=== PATIENT | male | born 1945 | race Caucasian/White ===

== ENCOUNTER 2018-07-24 07:59 | Emergency (ER) | payer MEDICARE ==
[~2018-07-24] VITALS: Ht 188 cm; Wt 98.9 kg
[2018-07-24] MEDS ORDERED: NAPR-514 PO (08:55)
--- NOTE | 2018-07-24 08:55 | PHYS DOC ---
Past Medical History Past Medical History: GERD, Hypertension Adult General Chief Complaint Chief Complaint: UPPER EXTREMITY PAIN HPI HPI Patient is a 72 year old male who presents to the ER with complaints of pain in his left arm antecubital area. Pt denies any known injury, states that the sx began after he carried his bags in to the hotel last night. Pt states he is on his way to [place] from [place] and reports that he drove 6 hours yesterday. Pt denies any chest pain, shortness of breath, palpitations, headache , weakness, or fever. Pt states he is concerned because 2 days ago he was treated with IV medication for a food bolus and the IV was started in his left hand. He denies any swelling, redness, or tenderness of his left arm. He states that the tourniquet used to start the IV was removed immediately. Pt denies any decrease in ROM, reports that the pain increases when he bends or moves his arm. Currently, at rest he denies any pain. He also reports concern that his blood pressure is higher than normal, it is usually in the 130's over 80's. Review of Systems Review of Systems Constitutional: Denies fever or chills [] Eyes: Denies change in visual acuity, redness, or eye pain [] Respiratory: Denies cough or shortness of breath [] Cardiovascular: Denies chest pain or palpitations GI: Denies abdominal pain, nausea, or vomiting Musculoskeletal: Denies back pain, reports pain in left arm over the antecubital space with movement Integument: Denies rash or skin lesions [] Neurologic: Denies headache, focal weakness or sensory changes [] All other systems were reviewed and found to be within normal limits, except as documented in this note. Allergies Allergies Allergies Coded Allergies Type Severity Reaction Last Updated Verified No Known Drug Allergies 07/24/18 No Physical Exam Physical Exam Constitutional: Well developed, well nourished, no acute distress, non-toxic appearance. [] HENT: Normocephalic, atraumatic, bilateral external ears normal, nose normal. [] Eyes: PERRLA, conjunctiva normal, no discharge. [] Cardiovascular:Heart rate regular rhythm, no murmur [] Lungs & Thorax: Bilateral breath sounds clear to auscultation [] Skin: Warm, dry, no erythema, no rash; small hematoma noted to left posterior hand at previous IV site no erythema, warmth, or swelling noted. [] Extremities: No tenderness, no cyanosis, no clubbing, ROM intact, no edema, RUE pulses 2+ [] Neurologic: Alert and oriented X 3, normal motor function, normal sensory function, no focal deficits noted. [] Psychologic: Affect normal, judgement normal, mood normal. [] Current Patient Data Vital Signs Vital Signs Date Time Temp Pulse Resp B/P (MAP) Pulse Ox O2 Delivery O2 Flow Rate FiO2 07/24/18 09:01 71 16 131/75 (93) 94 Room Air 07/24/18 08:31 97.5 97.5 EKG EKG [] Radiology/Procedures Radiology/Procedures [] Course & Med Decision Making Course & Med Decision Making Pertinent Labs and Imaging studies reviewed. (See chart for details) Dx: left elbow strain Rx for naproxen written . Pt encouraged to rest arm, activity as tolerated. Warm packs or ice to sore area for comfort. Follow up with PCP next week. Return to the ER if symptoms worsen. Patient verbalized an understanding of home care, medications, follow-up, and return to ED instructions and was in agreement with the plan of care. [] Dragon Disclaimer Dragon Disclaimer This electronic medical record was generated, in whole or in part, using a voice recognition dictation system. Departure Departure Impression: Primary Impression: Strain of left elbow Disposition: HOME, SELF-CARE Condition: STABLE Patient Instructions: Elbow Injury-Brief Additional Instructions: Fill prescription and use as directed. Rest your arm, activity as tolerated. Warm packs or ice to sore area for comfort. Follow up with PCP next week. Return to the ER if symptoms worsen. Scripts Naproxen (NAPROXEN) 500 Mg Tablet 500 MG PO BID PRN for PAIN for 10 Days, #20 TAB 0 Refills Prov: GRAHAM ORELLANA APRN 07/24/18 Problem Qualifiers Primary Impression: Strain of left elbow Encounter type: initial encounter Qualified Codes: S56.912A - Strain of unspecified muscles, fascia and tendons at forearm level, left arm, initial encounter GRAHAM ORELLANA APRN Jul 24, 2018 08:55
[2018-07-24 09:01] VITALS: BP 131/75
== END 2018-07-24 08:50 | disposition home or self-care (01) ==
LOC: ER 07:59
DX: S56.912A Strain of unspecified muscles, fascia and tendons at forearm level, left arm, initial encounter (principal); I10 Essential (primary) hypertension; K21.9 Gastro-esophageal reflux disease without esophagitis; X50.9XXA Other and unspecified overexertion or strenuous movements or postures, initial encounter; Y93.89 Activity, other specified; Y92.89 Other specified places as the place of occurrence of the external cause; Y99.8 Other external cause status
CPT/HCPCS: 99282